=== PATIENT | male | born 1975 | race Caucasian/White ===

== ENCOUNTER 2016-12-27 07:54 | Emergency (ER) | payer MEDICAID ==
[~2016-12-27] VITALS: Ht 165.1 cm; Wt 72.6 kg
[2016-12-27 08:26] VITALS: BP 126/76
--- NOTE | 2016-12-27 08:30 | NUR ---
Patient ambulated to bed 03.
--- NOTE | 2016-12-27 08:32 | NUR ---
41 M BIB SELF W/C/O "INTERMITTENT" RASH AND ITCHING TO BL ARMS, TORSO, AND BACK X 25 DAYS. PT DENIES ANY DIF BREATHING OR SOB; NO SWELLING TO FACE, LIPS, OR TONGUE; RR ARE EVEN AND UNLABORED; PT STATES UNSURE OF WHAT IS CAUSING RASH; AOX4 WITH EVEN AND STEADY GAIT; PATIENT STATES PAIN OF 6/10 AT THIS TIME; VSS; PATIENT POSITIONED FOR COMFORT WITH BED IN LOWEST POSITION; HOB ELEVATED; ER MD MADE AWARE OF PT STATUS. NAD. WILL CONTINUE TO MONITOR.
--- NOTE | 2016-12-27 08:36 | NUR ---
Dr. Lundberg evaluating patient at bedside.
[2016-12-27] MEDS ORDERED: methylPREDNISolone SS 125 MG/2 ML VIAL IM ONE (08:40)
[2016-12-27] MEDS ORDERED: FAMOTIDINE 20 MG TAB PO ONE (08:40)
[2016-12-27] MEDS ORDERED: diphenhydrAMINE 50 MG CAP PO ONE (08:40)
[2016-12-27 10:12] VITALS: BP 118/79
--- NOTE | 2016-12-27 10:12 | NUR ---
Patient discharged with v/s stable. Written and verbal after care instructions given and explained. Patient alert, oriented and verbalized understanding of instructions. Ambulatory with steady gait. All questions addressed prior to discharge. ID band removed. Patient advised to follow up with PMD. Rx of Atarax and Prednisone given. Patient educated on indication of medication including possible reaction and side effects. Opportunity to ask questions provided and answered.
== END 2016-12-27 10:12 | disposition home or self-care (01) ==
LOC: MED 07:54
DX: T78.40XA Allergy, unspecified, initial encounter (principal); L50.9 Urticaria, unspecified; X58.XXXA Exposure to other specified factors, initial encounter
CPT/HCPCS: 96372; 99283; J2930; Q0163

== ENCOUNTER 2018-03-19 02:57 | Emergency (ER) | payer SELFPAY ==
[~2018-03-19] VITALS: Ht 167.6 cm; Wt 72.6 kg
[2018-03-19 02:59] VITALS: BP 107/65
--- NOTE | 2018-03-19 02:59 | NUR ---
TO BED # 4 AMBULATORY, REPORT GIVEN TO TOM RENAE
[2018-03-19 03:00] VITALS: BP 107/65
--- NOTE | 2018-03-19 03:07 | NUR ---
Dr. San evaluating patient at bedside.
--- NOTE | 2018-03-19 03:19 | NUR ---
DISCHARGED STABLE. PRESCRIPTION,VERBAL AND WRITTEN AFTERCARE INSTRUCTIONS GIVEN. VERBALIZED UNDERSTANDING.
== END 2018-03-19 03:19 | disposition home or self-care (01) ==
LOC: MED 02:57
DX: J06.9 Acute upper respiratory infection, unspecified (principal)
CPT/HCPCS: 99283